=== PATIENT | male | born 1975 ===

== ENCOUNTER 2016-11-08 16:17 | Observation (INO) | payer MEDICAID ==
[2016-11-08 16:23] VITALS: BMI 29.0
--- NOTE | 2016-11-08 16:30 | ED PDOC ---
HPI: Headache Time Seen by Provider: 11/08/16 16:24 Chief Complaint (Nursing): Headache Additional Complaint(s): Patient is a 41 y/o M presenting with headache. He reports that 2 hours prior to arrival he had acute onset of L sided headache. He reports that he has had similar headache before. He denies trauma. He denies chest pain, shortness of breath, abdominal pain, numbness or weakness. He reports that for 4 days he has also had injection of L conjunctiva and has been rubbing his eye because "its itchy." Denies cough or uri complaints. Denies vision changes. Denies compliance with medications. PMD: Cuco Mendez Hat Measurer: Sulaiman Neff Past Medical History Vital Signs: Last Vital Signs Temp 98.4 F 11/08/16 16:21 Pulse 82 11/08/16 16:21 Resp 20 11/08/16 16:21 BP 197/126 H 11/08/16 16:21 Pulse Ox 100 11/08/16 16:21 - Medical History PMH: Depression, Diabetes, HTN, TIA (03/2014, no residual symptoms) - Surgical History Surgical History: Coronary Stent (2 yrs ago [facility]) - Family History Family History: States: Unknown Family Hx - Immunization History Hx Tetanus Toxoid Vaccination: No Hx Influenza Vaccination: No Hx Pneumococcal Vaccination: No - Home Medications Home Medications: Ambulatory Orders Medication Instructions Recorded Aspirin [Ecotrin] 81 mg PO DAILY #30 tab 11/09/16 Atorvastatin [Lipitor] 40 mg PO DAILY #30 tab 11/09/16 Clopidogrel [Plavix] 75 mg PO DAILY #30 tab 11/09/16 Lisinopril/Hydrochlorothiazide 1 tab PO DAILY #30 tab 11/09/16 [Lisinopril-Hctz 20-25 mg Tab] MetFORMIN [glucoPHAGE] 1,000 mg PO BID #60 tab 11/09/16 Metoprolol Succinate [Toprol XL] 100 mg PO DAILY #30 tab 11/09/16 Trazodone HCl 150 mg PO HS #30 tab 11/09/16 amLODIPine [Norvasc] 10 mg PO DAILY #30 tab 11/09/16 - Allergies Allergies/Adverse Reactions: Allergies Allergy/AdvReac Type Severity Reaction Status Date / Time No Known Allergies Allergy Verified 08/18/16 07:27 Review of Systems Constitutional: Negative for: Fever, Chills Eyes: Positive for: Conjunctivae Inflammation (to L eye). Negative for: Vision Change Cardiovascular: Negative for: Chest Pain, Palpitations, Orthopnea, Edema, Light Headedness Respiratory: Negative for: Cough, Shortness of Breath, SOB with Exertion, Wheezing Gastrointestinal: Negative for: Nausea, Vomiting, Abdominal Pain, Diarrhea, Constipation Genitourinary Male: Negative for: Dysuria Musculoskeletal: Negative for: Neck Pain Neurological: Positive for: Headache. Negative for: Weakness, Numbness, Incoordination, Change in Speech, Seizures, Altered Mental Status, Dizziness Physical Exam - Reviewed Nursing Documentation Reviewed: Yes Vital Signs Reviewed: Yes - Physical Exam Appears: Positive for: Well, Non-toxic Head Exam: Positive for: ATRAUMATIC, NORMAL INSPECTION, NORMOCEPHALIC Skin: Positive for: Normal Color, Warm, DRY Eye Exam: Positive for: EOMI, PERRL, Conjunctival injection (to L eye) Neck: Positive for: Normal, Painless ROM, Supple Cardiovascular/Chest: Positive for: Regular Rate, Rhythm Respiratory: Positive for: Normal Breath Sounds. Negative for: Rales, Rhonchi, Wheezing Gastrointestinal/Abdominal: Positive for: Soft. Negative for: Tenderness, Distended, Guarding, Rebound Back: Positive for: Normal Inspection. Negative for: L CVA Tenderness, R CVA Tenderness Extremity: Positive for: Normal ROM, Pedal Edema. Negative for: Calf Tenderness , Swelling Neurologic/Psych: Positive for: Alert, azure principal solution specialist II-XII, Gait (steady) - Laboratory Results Result Diagrams: 11/08/16 16:50 11/08/16 16:50 - ECG O2 Sat by Pulse Oximetry: 100 Medical Decision Making Medical Decision Making: Patient presenting with headache and elevated bp, consistent with hypertensive urgency. Non-compliant with medications. No focal neurologic deficits and patient is well appearing. As headache has been for only 2 hours, will get CT head to evaluate for bleed. Will get labs, give aspirin after negative CT head , lopressor for BP 4:44PM FS:112. EKG shows NSR at 80bpm with LAD and LVH. No acute ST changes 5:00PM Signed out to Dr. Macias to follow-up ct head, xray and labs Disposition - Clinical Impression Clinical Impression: Headache, Hypertension - Disposition Disposition Time: 17:00 Condition: FAIR
[2016-11-08] MEDS ORDERED: Metoprolol 1 mg/ml Inj IVP STA ×2 (16:37)
[2016-11-08 16:56] LABS: BASO # 0.1 K/uL (0.0-0.2); BASO % 1.1 % (0.0-2.0); EOS # 0.5 K/uL (0.0-0.7); EOS % 4.5 % (0.0-4.0); HEMATOCRIT 42.5 % (35.0-51.0); LYMPH % 29.8 % (20.0-40.0); MEAN CORPUSCULAR HEMOGLOBIN 30.1 pg (27.0-31.0); MEAN CORPUSCULAR HGB CONC 33.9 g/dL (33.0-37.0); MEAN PLATELET VOLUME 8.6 fl (7.2-11.7); MONO # 0.8 K/uL (0.0-0.8); MONO % 7.7 % (0.0-10.0); NEUT # 5.7 K/uL (1.8-7.0); NEUT % 56.9 % (50.0-75.0); RED CELL DISTRIBUTION WIDTH 12.7 % (11.5-14.5); WHITE BLOOD COUNT 10.1 K/uL (4.8-10.8)
[2016-11-08 17:10] LABS: ALB/GLOB RATIO 1.3 (1.0-2.1); ALKALINE PHOSPHATASE 82 U/L (38-126); ALT/SGPT 41 U/L (21-72); AST/SGOT 22 U/L (17-59); BILIRUBIN,TOTAL 0.7 mg/dl (0.2-1.3); BLOOD UREA NITROGEN 13 mg/dl (9-20); CALCIUM 9.2 mg/dL (8.4-10.2); CARBON DIOXIDE 31 mmol/L (22-30); CHLORIDE 100 mmol/L (98-107); GFR AFRICAN-AMERICAN > 60; GLUCOSE,RANDOM 115 mg/dL (75-110); MAGNESIUM 1.7 MG/DL (1.6-2.3); PHOSPHOROUS 3.6 mg/dl (2.5-4.5); POTASSIUM 4.1 MMOL/L (3.6-5.0); SODIUM 139 mmol/l (132-148); TOTAL PROTEIN 7.1 G/DL (6.3-8.2)
[2016-11-08 17:11] LABS: PARTIAL THROMBOPLASTIN TIME 30.7 Seconds (25.6-37.1)
--- NOTE | 2016-11-08 17:25 | ED PDOC ---
- Laboratory Results Result Diagrams: 11/08/16 16:50 11/08/16 16:50 - ECG O2 Sat by Pulse Oximetry: 100 (RA) Pulse Ox Interpretation: Normal Medical Decision Making Medical Decision Making: Receiving sign out: Patient signed out to me by Dr. Rosas at [address] results, labs and XR results. Scribe Attestation: Documented by Kenna Laboy acting as a scribe for Hayde Macias MD. Provider Attestation: All medical record entries made by the Scribe were at my direction and personally dictated by me. I have reviewed the chart and agree that the record accurately reflects my personal performance of the history, physical exam, medical decision making, and the department course for this patient. I have also personally directed, reviewed, and agree with the discharge instructions and disposition. Disposition - Clinical Impression Clinical Impression: Headache, Hypertension - POA Present On Arrival: None - Disposition Disposition: Hospitalized as Observation Patient Disposition Time: 17:00 Condition: FAIR Progress Note - Review of Symptoms Events since last encounter: Time: 1735 CT Head IMPRESSION: 8 mm hypodensity within the left basal ganglia, possibly lacunar infarct. Moderate scattered periventricular and subcortical white matter hypodensities, which are nonspecific, but often seen with chronic microvascular ischemic disease. Additional considerations include but not limited to sequela of migraines, early microangiopathic changes, gliosis, vasculitis, or demyelination. Reviewed previous chart, specifically admission to [facility] 02/2016. Pt had Neurological workup with concerns for CVA. MRA demosntrated multiple areas of lacunar infarcts and there was concern by the neurologist at that time of CADISIL. Pt reports that after that admission he never again went to see a neurologist and was unaware of these results. Admits he may have forgotten the results and to have followed up. Pt has persistent hypertension and there is concern that multiple ischemic areas of the brain are contributing to persistent hypertension. Pt is poor follow up due to access issues and will hospitalize for further evaluation, given potential for debilatating progession is high. Time: [address] Levin, hospitalist tangible personal property appraiser and patient to be admitted to [facility] due to uncontrolled hypertension.
--- NOTE | 2016-11-08 17:38 | CT ---
PROCEDURE: CT HEAD WITHOUT CONTRAST. HISTORY: headache COMPARISON: None available. TECHNIQUE: Axial computed tomography images were obtained through the head/brain without intravenous contrast. Radiation dose: Total exam DLP = 862.95 mGy-cm. This CT exam was performed using one or more of the following dose reduction techniques: Automated exposure control, adjustment of the mA and/or kV according to patient size, and/or use of iterative reconstruction technique. FINDINGS: HEMORRHAGE: No intracranial hemorrhage. BRAIN: No mass effect or edema. 8 mm hypodensity within the left basal ganglia, possibly lacunar infarct. Moderate scattered periventricular and subcortical white matter hypodensities, which are nonspecific, but often seen with chronic microvascular ischemic disease. Please note that MRI with diffusion imaging is more sensitive in the detection of acute ischemic event. VENTRICLES: No hydrocephalus. CALVARIUM: Unremarkable. PARANASAL SINUSES: Unremarkable as visualized. No significant inflammatory changes. MASTOID AIR CELLS: Unremarkable as visualized. No inflammatory changes. OTHER FINDINGS: None. IMPRESSION: 8 mm hypodensity within the left basal ganglia, possibly lacunar infarct. Moderate scattered periventricular and subcortical white matter hypodensities, which are nonspecific, but often seen with chronic microvascular ischemic disease. Additional considerations include but not limited to sequela of migraines, early microangiopathic changes, gliosis, vasculitis, or demyelination.
--- NOTE | 2016-11-08 18:59 | CP.PCM.HP ---
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 He describes the pain as moderate to severe, almost itchy, associated with left-sided headache. In the emergency room patient was found to have blood pressure of 204/129 patient was given Lopressor 10 mg IVP. Patient blood pressure improved to about 180/120 and was given an additional dose of labetalol. Patient is known to be noncompliant. We will place the patient on observation tele, for optimization of meds and better control of blood pressure. 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) but was never worked up, anxiety, depression, history of alcohol abuse, history of migraines Past surgical history CORONAR ARTERIOGR-2 CATH (04/02/14) CORONARY ARTERIOGRAM NEC (04/05/14) DETOXIFICATION SERVICES FOR SUBSTANCE ABUSE TREATMENT (03/17/16) INDIVIDUAL PSYCHOTHERAPY, COGNITIVE-BEHAVIORAL (03/17/16) INDIVIDUAL PSYCHOTHERAPY, SUPPORTIVE (03/17/16) INFLUENZA VACCINATION (04/02/14) INJECT/INFUSE PLATELET INHIBITOR (04/05/14) INSERTION OF ONE VASCULAR STENT (04/05/14) INSRT OF DRUG-ELUTING CORON ARTERY STENTS(S) (04/05/14) LEFT HEART CARDIAC CATH (04/02/14) LT HEART ANGIOCARDIOGRAM (04/02/14) PERCUTANEOUS TRANSLUMINAL CORONARY ANGIOPLASTY [PTCA] (04/05/14) PHARMACOTHERAPY FOR SUBSTANCE ABUSE TREATMENT, ANTABUSE (03/17/16) PROCEDURE ON SINGLE VESSEL (04/05/14) VACCINATION NEC (04/02/14) Family history denies Social history denies tobacco, alcohol, recreational or IV drug use Medications: Patient is known to be noncompliant, however pharmacist in the yard did confirm medications patient should be taking. Patient is noncompliant because he lost his insurance and is currently homeless. Allergies no known drug allergies Current blood pressure continues to arrange 170-180 systolic, heart rate 69 Respiratory rate 14 saturating 100% on room air Vital signs as documented. Gen: WDWN, cooperative, alert HEENT: NCAT, PERRL, EOMI, no erythema, exudates, gross hearing intact, no lesions Neck: Soft, supple, no lymphadenopathy, no JVD Heart: +S1S2, RRR, No MRG Lung: CTAB, No WRR Abd: soft, NT, ND, BSx4, no HSM, no masses Ext: warm, well perfused, pedal pulses intact Neuro: AAOx3, Strength equal bilaterally UE/LE Skin: Warm, Dry, no rash Psych: Normal mood, affect with appropriate range Laboratory 11/08/16 16:50 11/08/16 16:[address] showed 8 mm hypodensity with left basal ganglia possibly lacunar infarct Moderate scattered periventricular and subcortical white matter hypodensities, nonspecific, chronic microvascular ischemic disease. EKG normal sinus rhythm, rate 80 no evidence of acute ischemia or infarct. 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 He describes the pain as moderate to severe, almost itchy, associated with left-sided headache. In the emergency room patient was found to have blood pressure of 204/129 patient was given Lopressor 10 mg IVP. Patient blood pressure improved to about 180/120 and was given an additional dose of labetalol. Patient is known to be noncompliant. We will place the patient on observation tele, for optimization of meds and better control of blood pressure. Uncontrolled hypertension On admission patient BP 204/129 In the ER patient was given Lopressor 10 mg IVP stat as well as labetalol 10 mg IV. Patient home medications include: Amlodipine 10 mg by mouth daily, hydrochlorothiazide 25 mg by mouth daily, lisinopril 20 mg by mouth daily, Toprol 100 mg by mouth daily, patient was also on clonidine but will hold clonidine given medications noncompliance and rebound hypertension. We'll continue his home antihypertensives Hyperlipidemia Stable Continue Lipitor 40 mg by mouth daily Coronary artery disease Patient has history of PCI times one Continue aspirin and Plavix and Toprol Chronic microvascular ischemic disease and history of TIAs continue aspirin and Plavix Diabetes mellitus Stable Patient is on metformin Accu-Cheks Insulin sliding scale coverage VTE prophylaxis SCD Present on Admission - Present on Admission Any Indicators Present on Admission: No Past Patient History - Infectious Disease Hx of Infectious Diseases: None - Tetanus Immunizations Tetanus Immunization: Unknown - Past Medical History & Family History Past Medical History?: Yes - Past Social History Smoking Status: Never Smoked - CARDIAC Hx Cardiac Disorders: Yes - PULMONARY Hx Respiratory Disorders: No - NEUROLOGICAL Hx Neurological Disorder: Yes - HEENT Hx HEENT Problems: No - RENAL Hx Chronic Kidney Disease: No - ENDOCRINE/METABOLIC Hx Endocrine Disorders: Yes - HEMATOLOGICAL/ONCOLOGICAL Hx Blood Disorders: No - INTEGUMENTARY Hx Dermatological Problems: No - MUSCULOSKELETAL/RHEUMATOLOGICAL Hx Falls: No - GASTROINTESTINAL Hx Gastrointestinal Disorders: No - GENITOURINARY/GYNECOLOGICAL Hx Genitourinary Disorders: No - PSYCHIATRIC Hx Psychophysiologic Disorder: Yes - SURGICAL HISTORY Hx Coronary Stent: Yes (2 yrs ago [facility]) - ANESTHESIA Hx Anesthesia: Yes Hx Anesthesia Reactions: No Hx Malignant Hyperthermia: No Meds Allergies/Adverse Reactions: Allergies Allergy/AdvReac Type Severity Reaction Status Date / Time No Known Allergies Allergy Verified 08/18/16 07:27 Results - Vital Signs Recent Vital Signs: Last Vital Signs Temp 98.0 F 11/08/16 18:45 Pulse 79 11/08/16 18:45 Resp 14 11/08/16 18:45 BP 179/100 H 11/08/16 18:45 Pulse Ox 99 11/08/16 18:45 - Labs Result Diagrams: 11/08/16 16:50 11/08/16 16:50
[2016-11-08] MEDS ORDERED: Labetalol 5 mg/ml Inj 20ML IVP STA (19:53)
[2016-11-08] MEDS ORDERED: Labetalol 5 mg/ml Inj 20ML IVP PRN (19:54)
[2016-11-08] MEDS: Insulin Lispro (humaLOG) 100 Units/ml Inj SC SCH (21:39)
[2016-11-09] MEDS: Insulin Lispro (humaLOG) 100 Units/ml Inj SC SCH ×2 (06:49→11:29)
[2016-11-09 08:33] VITALS: BP 145/81; PULSE 66; RESP 20; TEMP 97.3
[2016-11-09] MEDS ORDERED: Metoprolol Succinate 100 mg XL Tab PO SCH (09:00)
--- NOTE | 2016-11-09 09:37 | RAD ---
HISTORY: Hypertension COMPARISON: No prior. FINDINGS: LUNGS: The lungs are clear. PLEURA: No significant pleural effusion identified, no pneumothorax apparent. CARDIOVASCULAR: Normal. OSSEOUS STRUCTURES: No significant abnormalities. VISUALIZED UPPER ABDOMEN: Normal. OTHER FINDINGS: None. IMPRESSION: No acute findings.
--- NOTE | 2016-11-09 09:47 | CP.PCM.DIS ---
Provider - Provider Date of Admission: 11/08/16 17:59 Attending physician: Elizabeth Levin DO Time Spent in preparation of Discharge (in minutes): 30 Diagnosis - Discharge Diagnosis (1) Hypertensive urgency Status: Acute Hospital Course - Lab Results Lab Results: Most Recent Lab Values WBC 10.1 K/uL (4.8-10.8) 11/08/16 16:50 RBC 4.77 Mil/uL (4.40-5.90) 11/08/16 16:50 Hgb 14.4 g/dL (12.0-18.0) 11/08/16 16:50 Hct 42.5 % (35.0-51.0) 11/08/16 16:50 MCV 89.0 fl (80.0-94.0) 11/08/16 16:50 MCH 30.1 pg (27.0-31.0) 11/08/16 16:50 MCHC 33.9 g/dL (33.0-37.0) 11/08/16 16:50 RDW 12.7 % (11.5-14.5) 11/08/16 16:50 Plt Count 319 K/uL (130-400) 11/08/16 16:50 MPV 8.6 fl (7.2-11.7) 11/08/16 16:50 Neut % (Auto) 56.9 % (50.0-75.0) 11/08/16 16:50 Lymph % (Auto) 29.8 % (20.0-40.0) 11/08/16 16:50 Hall % (Auto) 7.7 % (0.0-10.0) 11/08/16 16:50 Eos % (Auto) 4.5 % (0.0-4.0) H 11/08/16 16:50 Baso % (Auto) 1.1 % (0.0-2.0) 11/08/16 16:50 Neut # 5.7 K/uL (1.8-7.0) 11/08/16 16:50 Lymph # 3.0 K/uL (1.0-4.3) 11/08/16 16:50 Hall # 0.8 K/uL (0.0-0.8) 11/08/16 16:50 Eos # 0.5 K/uL (0.0-0.7) 11/08/16 16:50 Baso # 0.1 K/uL (0.0-0.2) 11/08/16 16:50 PT 11.7 Seconds (9.8-13.1) 11/08/16 16:50 INR 1.1 (0.9-1.2) 11/08/16 16:50 APTT 30.7 Seconds (25.6-37.1) 11/08/16 16:50 Sodium 139 mmol/l (132-148) 11/08/16 16:50 Potassium 4.1 MMOL/L (3.6-5.0) 11/08/16 16:50 Chloride 100 mmol/L (98-107) 11/08/16 16:50 Carbon Dioxide 31 mmol/L (22-30) H 11/08/16 16:50 Anion Gap 12 (10-20) 11/08/16 16:50 BUN 13 mg/dl (9-20) 11/08/16 16:50 Creatinine 0.9 mg/dL (0.8-1.5) 11/08/16 16:50 Est GFR ( Amer) > 60 11/08/16 16:50 Est GFR (Non-Af Amer) > 60 11/08/16 16:50 POC Glucose (mg/dL) 114 mg/dL (65-110) H 11/09/16 05:14 Random Glucose 115 mg/dL (75-110) H 11/08/16 16:50 Calcium 9.2 mg/dL (8.4-10.2) 11/08/16 16:50 Phosphorus 3.6 mg/dl (2.5-4.5) 11/08/16 16:50 Magnesium 1.7 MG/DL (1.6-2.3) 11/08/16 16:50 Total Bilirubin 0.7 mg/dl (0.2-1.3) 11/08/16 16:50 AST 22 U/L (17-59) 11/08/16 16:50 ALT 41 U/L (21-72) 11/08/16 16:50 Alkaline Phosphatase 82 U/L (38-126) 11/08/16 16:50 Total Creatine Kinase 92 U/L (55-170) 11/08/16 16:50 CK-MB (Mass) 1.54 ng/mL (0.0-3.38) 11/08/16 16:50 Troponin I 0.0190 ng/mL (0.00-0.120) 11/08/16 16:50 NT-Pro-B Natriuret Pep 797 pg/ml (0-450) H 11/08/16 16:50 Total Protein 7.1 G/DL (6.3-8.2) 11/08/16 16:50 Albumin 4.0 g/dL (3.5-5.0) 11/08/16 16:50 Globulin 3.1 gm/dL (2.2-3.9) 11/08/16 16:50 Albumin/Globulin Ratio 1.3 (1.0-2.1) 11/08/16 16:50 - Hospital Course Hospital Course: 41-year-old noncompliant male with past medical history of hypertension, hyperlipidemia, coronary artery disease with PCI x1 proximal LAD and possibly another in March, history of TIA, and 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 He describes the pain as moderate to severe, almost itchy, associated with left-sided headache. In the emergency room patient was found to have blood pressure of 204/129 patient was given Lopressor 10 mg IVP. Patient blood pressure improved to about 180/120 and was given an additional dose of labetalol. Patient is known to be noncompliant. We will place the patient on observation tele, for optimization of meds and better control of blood pressure. Uncontrolled hypertension On admission patient BP 204/129 In the ER patient was given Lopressor 10 mg IVP stat as well as labetalol 10 mg IV. Patient home medications include: Amlodipine 10 mg by mouth daily, hydrochlorothiazide 25 mg by mouth daily, lisinopril 20 mg by mouth daily, Toprol 100 mg by mouth daily, patient was also on clonidine but will hold clonidine given medications noncompliance and rebound hypertension. We'll continue his home antihypertensives Hyperlipidemia Stable Continue Lipitor 40 mg by mouth daily Coronary artery disease Patient has history of PCI times one Continue aspirin and Plavix and Toprol Chronic microvascular ischemic disease and history of TIAs continue aspirin and Plavix Diabetes mellitus Stable Patient is on metformin Accu-Cheks Insulin sliding scale coverage VTE prophylaxis SCD Discharge Exam - Head Exam Head Exam: ATRAUMATIC, NORMAL INSPECTION, NORMOCEPHALIC Additional comments: Exam: GEN: WDWN, alert, cooperative HEENT: NCAT, PERRL, EOMI NECK: supple, no JVD, no lymphadenopathy CARDIAC: +S1S2 RRR LUNG: CTAB No WRR ABD: SOFT NT ND BSX4 NO MASSES NO HSM EXT: +pedal pulses, equal strength NEURO: AAOx3 SKIN warm, dry PSYCH normal mood, normal affect Discharge Plan - Discharge Medications Prescriptions: amLODIPine [Norvasc] 10 mg PO DAILY #30 tab Aspirin [Ecotrin] 81 mg PO DAILY #30 tab Atorvastatin [Lipitor] 40 mg PO DAILY #30 tab Clopidogrel [Plavix] 75 mg PO DAILY #30 tab Lisinopril/Hydrochlorothiazide [Lisinopril-Hctz 20-25 mg Tab] 1 tab PO DAILY # 30 tab MetFORMIN [glucoPHAGE] 1,000 mg PO BID #60 tab Metoprolol Succinate [Toprol XL] 100 mg PO DAILY #30 tab Trazodone HCl 150 mg PO HS #30 tab - Follow Up Plan Condition: FAIR Disposition: HOME/ ROUTINE Instructions: Hypertension (DC), Hypertension (GEN) Additional Instructions: FOLLOW UP WITH [facility] AND IF CONDITION OR SYMPTOMS WORSEN, RETURN TO ANY ER Referrals: [facility] [Provider Group]
--- NOTE | 2016-11-09 11:27 | CARD ---
APPROVED REPORT EKG Measurement Heart [id number] <Conclusion> Normal sinus rhythm Possible Left atrial enlargement Left axis deviation Poor R wave progression V1 to V5 Left ventricular hypertrophy with repolarization abnormality Abnormal ECG
[2016-11-09 12:06] VITALS: O2SAT 100
== END 2016-11-09 13:34 | disposition home or self-care (01) ==
LOC: H.ER 16:17 → H.ERHOLD 17:59 → H.TEL 19:01
PROVIDERS: ADMIT Student in an Organized Health Care Education/Training Program; ATTEND Student in an Organized Health Care Education/Training Program
DX: I16.0 Hypertensive urgency (principal); E11.9 Type 2 diabetes mellitus without complications; E78.5 Hyperlipidemia, unspecified; I10 Essential (primary) hypertension; I25.10 Atherosclerotic heart disease of native coronary artery without angina pectoris; Z79.02 Long term (current) use of antithrombotics/antiplatelets; Z79.82 Long term (current) use of aspirin; Z86.73 Personal history of transient ischemic attack (TIA), and cerebral infarction without residual deficits; Z91.14 Patient's other noncompliance with medication regimen; Z95.5 Presence of coronary angioplasty implant and graft; F32.9 Major depressive disorder, single episode, unspecified; H57.12 Ocular pain, left eye; Z79.84 Long term (current) use of oral hypoglycemic drugs; R51 Headache
CPT/HCPCS: 70450; 71010; 80053; 82550; 82553; 82948; 83735; 83880; 84100; 84484; 85025; 85610; 85730; 93005; 96374; 99285; G0378